=== PATIENT | female | born 1960 | race Two or more races ===

== ENCOUNTER 2024-09-22 16:01 | Emergency (ER) | payer OTHER ==
[~2024-09-22] VITALS: Ht 157.5 cm; Wt 58.1 kg
[2024-09-22] MEDS ORDERED: KETOROLAC TROMETHAMINE 15 MG VIAL IV STA (17:10)
[2024-09-22] MEDS ORDERED: FAMOTIDINE/PF 20 MG/2 ML VIAL IV PUSH STA (17:11)
[2024-09-22] MEDS ORDERED: KETOROLAC TROMETHAMINE 30 MG VIAL ONE (17:36)
[2024-09-22] MEDS ORDERED: FAMOTIDINE/PF 20 MG/2 ML VIAL ONE (17:36)
== END 2024-09-22 19:13 | disposition home or self-care (01) ==
LOC: ER 16:03
DX: M25.59 Pain in other specified joint (principal); Z88.2 Allergy status to sulfonamides

== ENCOUNTER → 2024-09-22 | Emergency (ER) | payer OTHER ==
[~2024-09-22] VITALS: Ht 162.6 cm; Wt 57.6 kg
[~2024-09-22] MED LIST: XANAX2 MG PO
== END | disposition home or self-care (01) ==
LOC: ER 02:07
DX: M25.50 Pain in unspecified joint (principal); Z88.2 Allergy status to sulfonamides